=== PATIENT | female | born 1970 | race Caucasian/White ===

== ENCOUNTER 2017-12-15 10:44 | Observation (INO) ==
[2017-12-15] MEDS ORDERED: Lidocaine PF 1% Inj 5 ML Syringe INFILTRATN ONE (12:00)
[2017-12-15] MEDS ORDERED: Phenylephrine/NS 1000 MCG/10ML Syringe IV.PUSH ONE (12:00)
[2017-12-15] MEDS ORDERED: Glycopyrrolate Inj 1 MG/5 ML Syringe IV.PUSH ONE (12:00)
[2017-12-15] MEDS ORDERED: Normosol-R pH 7.4 Inj 1,000 ML IV.CONT ONE (12:00)
[2017-12-15] MEDS ORDERED: Neostigmine Inj 5 MG/5 ML Syringe IV.PUSH ONE (12:00)
[2017-12-15] MEDS ORDERED: ceFAZolin 2 GM Premix Inj 2 GM/50 ML PIGGYBACK IV.SIG ONE (12:36)
[2017-12-15] MEDS ORDERED: Chlorhexidine Gluconate 2% 1 Pack (2 Cloths) TOPICAL SCH (13:30)
[2017-12-15] MEDS ORDERED: Metoprolol Tartrate 25 MG Tablet PO SCH (13:30)
[2017-12-15] MEDS ORDERED: Sodium Chlor 0.9% Inj 500 ML IV.SIG SCH (14:00)
[2017-12-15] MEDS ORDERED: ceFAZolin 2 GM Premix Inj 2 GM/50 ML PIGGYBACK IV.SIG SCH (14:00)
[2017-12-15] MEDS ORDERED: HYDROmorphone PF Inj 2 MG/ML Vial ONE ×2 (17:55→18:49)
[2017-12-15] MEDS ORDERED: fentaNYL Citrate Inj 100 MCG/2 ML Ampul ONE (18:15)
--- NOTE | 2017-12-15 18:42 | MP ---
cc: Buffy Mckeon MD DATE OF OPERATION: 12/15/2017 DATE OF OPERATION: 12/15/2017. PREOPERATIVE DIAGNOSES: 1. Severe dysmenorrhea. 2. Menorrhagia. 3. Adenomyosis. 4. Fibroids. POSTOPERATIVE DIAGNOSES: 1. Severe dysmenorrhea. 2. Menorrhagia. 3. Adenomyosis. 4. Fibroids. 5. Endometriosis. PROCEDURE PERFORMED: Laparoscopic-assisted vaginal hysterectomy. TYPE OF ANESTHESIA: General endotracheal intubation. SURGEON: Buffy Mckeon MD FINDINGS: On examination under anesthesia, the cervix was small without lesions. The uterus was slightly enlarged and mobile. The adnexa were negative for masses. Laparoscopic exam revealed a slightly enlarged uterus with multiple serosal implants of endometriosis. There was no endometriosis on the ovaries, posterior cul-de-sac or anterior cul-de-sac. The cul-de-sacs were clean. The bladder was normal. The upper abdomen was normal. The ovaries and tubes were normal. COMPLICATIONS: None. COUNTS: Correct. ESTIMATED BLOOD LOSS: 200 mL. FLUIDS: Crystalloids. CONDITION: The patient tolerated the procedure well and went to the recovery room in good condition. DESCRIPTION OF THE PROCEDURE: The patient was taken to the operating room, identified by name band and verbally. She was given a general anesthetic and carefully placed in the dorsolithotomy position for vaginal laparoscopic surgery. She was prepped and draped and a Harding catheter was inserted. An examination under anesthesia was carried out with the above findings. Once this had been accomplished, a weighted speculum was placed in the vagina. The anterior lip of the cervix was grasped with a single toothed tenaculum. The Hulka clamp was placed without difficulty. The surgeon changed gloves and paid attention to the umbilical area where a small subumbilical incision was made and using the 5 mm trocar, the abdomen was entered under direct vision without difficulty. A Pneumoperitoneum was created with three liters of CO2. Inferolateral to the umbilicus bilaterally, two more 5 mm ports were placed for instrumentation under direct visualization. The entire pelvis and abdomen were carefully inspected with the above findings. The right infundibulopelvic ligament was identified and taken with the LigaSure device. This was taken down and half way down the broad ligament. This was repeated on the left side as well. The round ligament was then taken and a bladder flap was created in the usual fashion pushing the bladder out of harms way. The remainder of the broad ligament was taken down with the LigaSure device bilaterally and the uterine vessels were skeletonized. Once they had been skeletonized, the uterine vessels were taken with the LigaSure device. Hemostasis was excellent. The Cardinal ligament was then taken down with the LigaSure device staying very close to the cervix and pushing the bladder out of harm's way. At this point, all surgical pedicles were inspected and the surgeon turned his attention to the cervix. The weighted speculum was replaced into the vagina and the Hulka clamp removed. The tenaculum was replaced anteriorly and a circumferential incision was made around the cervix without difficulty. Most of the Cardinal ligament had already been taken down. With several clamps of the Martha, the specimen was freed up and pulled through the vaginal canal. At this time, the pneumoperitoneum was released and the peritoneum was then grasped in a pursestring fashion with 2-0 Vicryl and the peritoneum closed. The vagina was closed with 0 Vicryl pop-offs in interrupted fashion with excellent hemostasis. Going back up to the laparoscope then, we inspected all the pedicles and they were completely dry. We removed the pneumoperitoneum and the three 5 mm ports. The incisions were repaired with a single stitch of 4-0 Monocryl in a subcuticular manner. The patient tolerated the procedure well and went to the Recovery Room in good condition. R. MD ROSA Guerrero/CECE , 06:23 PM , 06:41 PM
[2017-12-15] MEDS ORDERED: Zolpidem Tartrate 5 MG Tablet PO PRN (21:00)
[2017-12-15] MEDS: Ibuprofen 600 MG Tablet PO PRN (21:56)
[2017-12-15] MEDS: Docusate Sodium 100 MG Capsule PO SCH (21:57)
[2017-12-16] MEDS ORDERED: Levothyroxine 50 MCG Tablet PO SCH (06:00)
[2017-12-16] MEDS: Ibuprofen 600 MG Tablet PO PRN ×2 (06:19→11:45)
[2017-12-16] MEDS ORDERED: Simethicone 80 MG Chew Tablet PO PRN (07:15)
[2017-12-16 07:56] LABS: Baso % (Auto) 0.2 % (0.0-2.0); Eos % (Auto) 0.1 % (0.0-4.0); Hematocrit 33.9 % (35.0-46.0); Hemoglobin 11.6 gm/dL (11.6-15.3); Lymph # (Auto) 1.2 th/mm3 (1.0-4.8); Mean Corpuscular HGB Conc 34.3 % (32.0-36.0); Mean Corpuscular Volume 84.5 fL (80.0-100.0); Mean Platelet Volume 9.6 fL (7.0-11.0); Mono # (Auto) 0.7 th/mm3 (0.0-0.9); Mono % (Auto) 5.7 % (0.0-8.0); Neut # (Auto) 10.3 th/mm3 (1.8-7.7); Platelet Count 223 th/mm3 (150-450); Red Blood Count 4.01 mil/mm3 (4.00-5.30); Red Cell Distribution Width 12.6 % (11.6-17.2); White Blood Count 12.3 th/mm3 (4.0-11.0)
[2017-12-16] MEDS: Docusate Sodium 100 MG Capsule PO SCH (08:15)
[2017-12-16 08:29] LABS: Calcium 9.1 mg/dL (8.5-10.1); Carbon Dioxide 21.4 meq/L (21.0-32.0); Potassium 3.6 meq/L (3.5-5.1)
--- NOTE | 2017-12-16 12:49 | P.PNOB ---
Assessment and Plan - Postoperative Procedures Operation Date: 12/15/17 15:45 Actual Procedures Side Surgeon p LAPAROSCOPIC ASSISTED VAGINAL HYSTERECTOMY, BILATERAL SALPINGECTOMY Kyle Mckeon MD Postoperative day: 1 Postoperative status: doing well Postoperative plan: routine post-op care - Time Spent With Patient Total time spent is greater than 50% in coordination of care (as documented) at patient's floor/unit and/or counseling patient: less than 15 minutes Subjective Interval history: post op day 1 Subjective: pain is well controlled, patient is tolerating oral intake Physical Exam Vital signs: Temp Pulse Resp BP Pulse Ox 98.3 F 90 18 131/73 97 12/16/17 07:15 12/16/17 07:15 12/16/17 07:15 12/16/17 07:15 12/16/17 07:15 - Constitutional no acute distress - Routine Respiratory Exam Present: CTA bilaterally - Routine Cardiovascular Exam Present: RRR - Routine Abdominal Exam Present: soft Comments: band aids clean dry and intact - Detailed Neurological Exam: Coma Scale Verbal Response: Oriented - Urinary Catheter Management Indwelling Urethral Catheter Cath placed during this visit: yes, but has since been removed by the nurse Insertion date: 12/15/17 Insertion time: 16:14 Removal date: 12/16/17 Removal time: 06:00 Results - Labs CBC & Chem 7: 12/16/17 07:32 12/16/17 07:32 Labs: Laboratory Results - last 24 hr 12/15/17 12/16/17 12/16/17 12:57 07:32 07:32 WBC 12.3 H RBC 4.01 Hgb 11.6 Hct 33.9 L MCV 84.5 MCH 29.0 MCHC 34.3 RDW 12.6 Plt Count 223 MPV 9.6 Neut % (Auto) 84.0 H Lymph % (Auto) 10.0 Walker % (Auto) 5.7 Eos % (Auto) 0.1 Baso % (Auto) 0.2 Neut # (Auto) 10.3 H Lymph # (Auto) 1.2 Walker # (Auto) 0.7 Eos # (Auto) 0.0 Baso # (Auto) 0.0 WBC Differential . Differential Comment Auto diff final Sodium 140 Potassium 3.6 Chloride 107 Carbon Dioxide 21.4 Anion Gap 12 BUN 11 Creatinine 0.87 Estimated GFR 70 L Random Glucose 113 H Calcium 9.1 Beta HCG, Quant 1
[2017-12-16] MEDS ORDERED: Montelukast 10 MG Tablet PO SCH (18:00)
== END 2017-12-16 13:54 | disposition home or self-care (01) ==
LOC: HSDC 10:44 → HSDI 10:44 → H1EA 10:44
PROVIDERS: ADMIT Obstetrics & Gynecology; ATTEND Obstetrics & Gynecology